=== PATIENT | male | born 2005 | race Caucasian/White ===

== ENCOUNTER 2023-03-10 11:27 | Emergency (ER) | payer BC ==
[2023-03-10] MEDS ORDERED: Lidocaine 1% 20 ML MDV INFILT ONE (11:28)
== END 2023-03-10 12:17 | disposition home or self-care (01) ==
LOC: FB.ED 11:27
DX: S61.512A Laceration without foreign body of left wrist, initial encounter (principal); W26.8XXA Contact with other sharp object(s), not elsewhere classified, initial encounter; Y92.219 Unspecified school as the place of occurrence of the external cause
CPT/HCPCS: 12002; 99283